=== PATIENT | male | born 1945 | race Two or more races ===

== ENCOUNTER 2019-03-16 05:50 | Day surgery (SDC) | payer OTHER ==
[~2019-03-16 05:50] MED LIST: ENALAPRIL MALEA20 MG PO; LEVO-T50 MCG PO
[2019-03-16] MEDS ORDERED: ULTRACET PO (11:25)
[2019-03-16] MEDS ORDERED: NEURONTIN600 MG PO (11:26)
[2019-03-16] MEDS ORDERED: POLY119PG PO (11:26)
[2019-03-16] MEDS ORDERED: SURFAK240 M1 PO (11:26)
== END 2019-03-16 16:59 | disposition home or self-care (01) ==
LOC: CIR.AMB 05:50
DX: K42.0 Umbilical hernia with obstruction, without gangrene (principal); K43.0 Incisional hernia with obstruction, without gangrene